=== PATIENT | female | born 1995 | race Two or more races ===

== ENCOUNTER 2023-08-05 11:52 | Emergency (ER) | payer MEDICAID, OTHER ==
[~2023-08-05] VITALS: Ht 172.7 cm; Wt 94.5 kg
[2023-08-05 13:05] LABS: Basophils # (auto) 0 10 ^3/uL (0-0.2); Basophils % (auto) 0.4 % (0.0-2.0); Eosinophils # (auto) 0 10 ^3/uL (0-0.8); Eosinophils % (auto) 0.4 % (0.0-7.0); Hematocrit 37.8 % (36.0-46.0); Hemoglobin 12.8 g/dL (12.2-16.2); Lymphocytes # (auto) 1.5 10 ^3/uL (0.4-5.4); Lymphocytes % (auto) 14.7 % (10.0-50.0); Mean Corpuscular Hemoglobin 29.1 pg (28.0-32.0); Mean Corpuscular Hgb Conc. 33.7 g/dL (32.0-36.0); Mean Corpuscular Volume 86.3 fL (80.0-100.0); Monocytes # (auto) 0.7 10 ^3/uL (0-1.3); Neutrophils # (auto) 7.9 10 ^3/uL (1.6-8.6); Neutrophils % (auto) 77.5 % (37.0-80.0); Red Blood Cells 4.39 10^6/uL (4.0-5.20); Red Cell Distribution Width 14.4 % (11.8-14.3); White Blood Cell 10.1 10^3/uL (4.4-10.8)
[2023-08-05 13:36] LABS: Chloride 111 mmol/L (98-107); Potassium 4.4 mmol/L (3.5-5.1); Sodium 141 mmol/L (136-145)
[2023-08-05 13:37] LABS: Carbon Dioxide 25 mmol/L (20-30)
[2023-08-05 13:38] LABS: Calcium 9.5 mg/dL (8.5-10.1)
[2023-08-05 13:42] LABS: Glucose 84 mg/dL (74-106)
[2023-08-05 13:43] LABS: BUN/Creatinine Ratio 11.1 (10.0-20.0); Blood Urea Nitrogen 9 mg/dL (9-23)
[2023-08-05 14:22] LABS: Anion Gap 5 (5-15)
[2023-08-05] MEDS: HYDROcodone-ACET 10/325MG TAB PO ONE (16:20)
[2023-08-05] MEDS ORDERED: IBU600T PO (16:32)
[2023-08-05 17:50] VITALS: BP 106/58; PULSE 67; RESP 20; TEMP 98; O2SAT 99
== END 2023-08-05 17:58 | disposition home or self-care (01) ==
LOC: ER 11:52 → EDBD 11:52 → ER 17:58
DX: S82.852A Displaced trimalleolar fracture of left lower leg, initial encounter for closed fracture (principal); R55 Syncope and collapse; W50.0XXA Accidental hit or strike by another person, initial encounter; Y93.E8 Activity, other personal hygiene; Y92.89 Other specified places as the place of occurrence of the external cause; Y99.8 Other external cause status
CPT/HCPCS: 29515; 36415; 73610; 80048; 84484; 85025; 93005

== ENCOUNTER 2024-06-28 09:13 | Emergency (ER) | payer MEDICAID, OTHER ==
[~2024-06-28] VITALS: Ht 170.2 cm; Wt 110.0 kg
[~2024-06-28 09:13] MED LIST: IBU600T PO
[2024-06-28 10:45] VITALS: BP 119/64; PULSE 76; RESP 15; TEMP 98.7; O2SAT 97
[2024-06-28] MEDS ORDERED: ACET500T58 PO (11:11)
[2024-06-28] MEDS ORDERED: CYCL-837 PO (11:11)
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
== END 2024-06-28 11:45 | disposition home or self-care (01) ==
LOC: ER 09:13
DX: M25.562 Pain in left knee (principal); M25.512 Pain in left shoulder; M79.18 Myalgia, other site; V89.2XXA Person injured in unspecified motor-vehicle accident, traffic, initial encounter; Y93.I9 Activity, other involving external motion; Y92.488 Other paved roadways as the place of occurrence of the external cause; Y99.8 Other external cause status